=== PATIENT | female | born 1985 | race Caucasian/White ===

== ENCOUNTER 2019-07-02 06:50 | Inpatient (IN) | payer BC ==
[~2019-07-02] VITALS: Ht 170.2 cm; Wt 119.5 kg
[2019-07-04] VITALS (17 sets, daily range): BP systolic 97–138; BP diastolic 57–90; PULSE 50–108; TEMP 97.6–98.2
--- NOTE | 2019-07-04 10:05 | NUR ---
Pt arrives on unit ambulatory with spouse and two children for repeat section. Changed into clean gown. EFM and toco applied. VSS. Pt denies regular ctx, vaginal bleeding, LOF and reports GFM. IV started in RH. Labs obtained. LR infusing. Admission assessment completed. Consents signed. Pt updated on POC. Saftey reviewed. Bed locked in low position. Call light within reach. No questions or concerns at this time.
[2019-07-04] MEDS ORDERED: PRENATAL MVI (10:23)
[2019-07-04 11:48] LABS: BASO % 0.4 % (0.0-2.0); EOS # 0.1 (0.0-0.7); EOS % 0.8 % (0-4.0); GRAN # 8.1 (1.4-6.5); GRAN % 76.6 % (42.2-75.2); HEMOGLOBIN 12.1 g/dl (12.5-16.0); LYMPH # 1.8 (1.2-3.4); LYMPH % 16.7 % (20.0-51.0); MEAN CELL VOLUME 92 fl (80.0-100.0); MEAN CORPUSCULAR HEMOGLOBIN 31 pg (27.0-31.0); MEAN CORPUSCULAR HGB CONC 34 g/dl (33.0-37.0); MEAN PLATELET VOLUME 11.4 fl (7.4-10.4); MONO # 0.5 (0.1-0.6); MONO % 4.9 % (1.7-9.3); PLATELET COUNT 180 K/mm3 (130-400); RED BLOOD COUNT 3.89 M/mm3 (4.10-5.30)
[2019-07-04 11:51] LABS: HEMATOCRIT 35.6 % (37.0-47.0)
[2019-07-05 07:30] VITALS: BP 106/59; PULSE 77; TEMP 97.4
[2019-07-05] MEDS ORDERED: IBU600 MG PO (09:01)
[2019-07-05] MEDS ORDERED: PERCOCET 325 MG1 TA2 PO (09:01)
--- NOTE | 2019-07-05 10:01 | NUR ---
Initial visit; Mom thanked for offering congratulations for the of her son. thanked mom for choosing [facility].
[2019-07-05 12:37] VITALS: BP 116/60; PULSE 80; TEMP 97.6
[2019-07-05 16:57] VITALS: BP 124/66; PULSE 97; TEMP 98.3
[2019-07-05 20:30] VITALS: BP 113/55; PULSE 77; TEMP 98.3
[2019-07-06 08:05] VITALS: BP 100/56; PULSE 87; TEMP 97.6
== END 2019-07-06 11:00 | disposition home or self-care (01) | DRG 788 ==
LOC: LDR 07-04 06:50 → OB 07-04 10:00
PROVIDERS: ADMIT Obstetrics & Gynecology
PROC: 10D00Z1 Extraction of Products of Conception, Low, Open Approach (ICD-10-PCS; principal; 2019-07-04)
DX: O34.211 Maternal care for low transverse scar from previous cesarean delivery (principal); O99.214 Obesity complicating childbirth; E66.9 Obesity, unspecified; Z3A.39 39 weeks gestation of pregnancy; Z37.0 Single live birth
CPT/HCPCS: J0690; J1885; J2370; J2405; J2590; J7120

== ENCOUNTER 2020-11-17 08:59 | Inpatient (IN) | payer BC ==
[2020-11-17] VITALS (16 sets, daily range): BP systolic 113–135; BP diastolic 51–92; PULSE 61–115; TEMP 98.2–98.4
[~2020-11-17] VITALS: Ht 171.4 cm; Wt 127.7 kg
[~2020-11-17 08:59] MED LIST: IBU600 MG PO; PERCOCET 325 MG1 TA2 PO; PRENATAL MVI
--- NOTE | 2020-11-17 10:10 | NUR ---
Patient ambulates to 209 with spouse, changed into gown, FHR/TOCO monitors placed and explained. Patient denies any regular contractions, leaking of fluid, vaginal bleeding or decreased movement. Plan of care discussed and patient prepped for scheduled
[2020-11-17 10:54] LABS: BASO # 0.1 (0.0-0.2); BASO % 0.5 % (0.0-2.0); EOS # 0.1 (0.0-0.7); EOS % 0.6 % (0-4.0); GRAN # 8.6 (1.4-6.5); GRAN % 77.2 % (42.2-75.2); HEMOGLOBIN 12.3 g/dl (12.5-16.0); LYMPH # 1.9 (1.2-3.4); LYMPH % 16.8 % (20.0-51.0); MEAN CELL VOLUME 89 fl (80.0-100.0); MEAN CORPUSCULAR HEMOGLOBIN 30 pg (27.0-31.0); MEAN CORPUSCULAR HGB CONC 34 g/dl (33.0-37.0); MEAN PLATELET VOLUME 12.1 fl (7.4-10.4); MONO # 0.5 (0.1-0.6); MONO % 4.5 % (1.7-9.3); PLATELET COUNT 171 K/mm3 (130-400); RED BLOOD COUNT 4.09 M/mm3 (4.10-5.30); REDCELL DISTRIBUTION WIDTH-CV 13.2 % (11.5-14.5)
[2020-11-17 10:55] LABS: HEMATOCRIT 36.3 % (37.0-47.0)
[2020-11-17] MEDS ORDERED: IBU600 MG PO (21:53)
[2020-11-17] MEDS ORDERED: PERCOCET 325 MG1 TA2 PO (21:53)
[2020-11-18 03:21] VITALS: BP 138/76; PULSE 68; TEMP 98.1
[2020-11-18 09:00] VITALS: BP 116/56; PULSE 90; TEMP 98.2
--- NOTE | 2020-11-18 09:52 | NUR ---
Initial visit; Patient thanked [employer] for offering congratulations and God;s gillian for the of her son. Sheet [employer] Superintendent thanked patient for choosing [facility].
[2020-11-18 12:45] VITALS: BP 127/65; PULSE 77; TEMP 97.8
== END 2020-11-18 13:40 | disposition home or self-care (01) | DRG 788 ==
LOC: OB 08:59
PROVIDERS: ADMIT Obstetrics & Gynecology
PROC: 10D00Z1 Extraction of Products of Conception, Low, Open Approach (ICD-10-PCS; principal; 2020-11-17)
DX: O99.02 Anemia complicating childbirth (principal); O34.211 Maternal care for low transverse scar from previous cesarean delivery; O99.214 Obesity complicating childbirth; E66.9 Obesity, unspecified; Z3A.39 39 weeks gestation of pregnancy; Z37.0 Single live birth
CPT/HCPCS: J0690; J1885; J2175; J2405; J2590; J7120